=== PATIENT | male | born 1960 | race African-American/Black ===

== ENCOUNTER 2017-02-14 16:34 | Inpatient (IN) | payer BC, SELFPAY ==
[~2017-02-14] VITALS: Ht 175.3 cm; Wt 77.0 kg
--- NOTE | 2017-02-16 01:33 | ER ---
ADMIT: 02/14/2017 RM/LOC: 432 [facility] MR#: [id number] [address] [facility] [address] [place], [place] [address] TRUDY MCFADDEN [address] [place] [address] Emergency Room Report SEX: M AGE: 56 : 1960 DATE: 02/14/2017 TIME: 1634 hours. Please refer to my T-sheet for complete H and P. HISTORY OF PRESENT ILLNESS: Briefly, the patient is a 56-year-old, who comes in with chest pain, epigastric, started 2 hours ago while he was at rest, feels short of breath, feels weak. He also has a history of alcoholism. He drinks every day heavily and he has not drank for about 16-18 hours. He also smokes a pack of cigarettes. He has never had pain quite like this. He was brought in by his significant other. PHYSICAL EXAMINATION: VITAL SIGNS: His blood pressure is 130/80, pulse 77, respirations 19, sat 99%. GENERAL: He is in no acute distress. HEENT: Grossly normal. LUNGS: Clear. HEART: Tachy. No murmur. ABDOMEN: Soft, mildly tender at the epigastric. No rebound or guarding. SKIN: No rash. EMERGENCY DEPARTMENT COURSE: I gave him a liter of normal saline bolus, Zofran 4 IV, thiamine 100 mg IM, Protonix 40 mg IV, Ativan 1 mg IV, four p.o. 81 mg aspirin. CBC came back normal. Chemistries came back normal except potassium 3.1. Cardiac enzymes negative. Lipase is normal. I had a long discussion with him. I talked to Dr. Cramer. We will admit for a chest pain rule-out. ASSESSMENT: 1. Chest pain, atypical in nature. 2. ETOH abuse with early withdrawal. PLAN: Admit to the hospital. Ajay L Ohlson, MD/ thi JOB #: [id number] CC: Herberth Cramer MD, Attending Physician Herberth Cramer MD, Family Physician
[2017-02-16] MEDS ORDERED: PEPCID DPS20 MG PO (15:46)
[2017-02-16] MEDS ORDERED: DAILY MULTIPLE1 EAC1 PO (15:46)
[2017-02-16] MEDS ORDERED: FOLVITE-DPS1 MG PO (15:46)
[2017-02-16] MEDS ORDERED: ATIVAN-DPS1 MG PO (15:47)
--- NOTE | 2017-02-17 06:57 | HP ---
ADMIT: 02/14/2017 RM/LOC: 432 [facility] MR#: [id number] [address] [id number] TRUDY MCFADDEN [address] [place] [address] History and Physical SEX: M AGE: 56 : 1960 DATE OF SERVICE: CHIEF COMPLAINT AND HISTORY OF PRESENT ILLNESS: This is a 56-year-old male, who presented to the emergency room with pain in his entire chest and his upper abdomen. He tells me he has had some pain after 2 days in the emergency room charting at 2 hours. It is a sharp pain, nonradiating, associated with nausea but not with vomiting. Not associated with shortness of breath. He has no known cardiac history. He does have a longstanding history of alcoholism, heavy whiskey and vodka drinker for several years. Rarely quits. His last drink was about 8 o'clock this morning by his history. He wants to try to quit. In the emergency room, he was treated with Ativan, Protonix, Zofran. He was also given aspirin because of the chest pain. Also given thiamin. His EKG and cardiac enzymes and chest x-ray were all unremarkable. Dr. Woo has asked that we admit him to Acute Care to rule him out for acute coronary syndrome. PAST MEDICAL HISTORY: As far as I can tell, he has not been in inpatient Acute Care at [facility]. He has been treated for chemical dependency unit for alcohol dependence in the residential care program. This was in 2012. 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 Not aware of any other operations. He has never been diagnosed with any heart or lung disease or cancer. He has never had a stroke, never been diagnosed with hypertension or diabetes. MEDICATIONS: None routinely. ALLERGIES: NONE KNOWN. SOCIAL HISTORY: He is . He is accompanied by his . He is currently unemployed. He has alcoholism habit. He is a regular smoker but denies any illicit substances. FAMILY HISTORY: No known history of drug or alcohol problems. REVIEW OF SYSTEMS: CONSTITUTIONAL: He is not acknowledging any recent fevers. No recent ear, nose, throat complaints or change in his impaired vision. CARDIOVASCULAR: As above. RESPIRATORY: Denies shortness of breath. GASTROINTESTINAL: He has had nausea and abdominal pain but did not acknowledge any actual vomiting. No change in bowels or urination. PSYCH: History of PTSD, not currently on treatment. NEURO: No focal neurologic symptoms. He has had no hospitalizations for alcohol withdrawal, although he has had some alcohol withdrawal shakes in the past. He has had no alcohol withdrawal seizures. SKIN: No issues. HEMATOLOGIC: No history of any bleeding or blood clots. ADMIT: 02/14/2017 RM/LOC: [address] [facility] MR#: [id number] [address] [place] [id number] TRUDY MCFADDEN [address] [place] [address] History and Physical SEX: M AGE: 56 : 1960 PHYSICAL EXAMINATION: GENERAL: This is a pleasant gentleman, examined at the bedside, currently calm. He is not shaky. He is not tremulous. He is not tachycardic. He is not diaphoretic. He is alert. No signs of any hallucinations. VITAL SIGNS: Initial set of vital signs; 130/80, pulse 94, respirations 20, temp 98.4, O2 saturation 99% room air. 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 No significant vision in that eye. His left eye is grossly normal. Pupil reacts to light. ENT: Hearing is clear. No nasal discharge. Oropharynx is clear. NECK: No masses or tenderness. LUNGS: Clear, anterior and posterior. Normal respiratory effort. HEART: Regular rhythm. I do not hear a murmur. ABDOMEN: Mild tenderness across the upper abdomen. No guarding. No rebound. No lower abdominal tenderness. ABDOMEN: Soft. Bowel sounds are normal. No inguinal masses. GENITALIA: Unremarkable to cursory exam. SKIN: No rashes are noted. EXTREMITIES: Upper extremities normal appearance. Lower extremities grossly normal in appearance. No significant edema. BACK: Limited exam, nontender to palpation of the neck or spine. PSYCH: He is currently not anxious. LABORATORY DATA: His potassium is low at 3.1. Initial cardiac enzymes are negative. Various labs are still pending. IMPRESSION: 1. Likely noncardiac chest pain. However, we will rule out for acute coronary syndrome. 2. Chronic alcoholism, certainly at risk for withdrawal symptoms. 3. He smokes. 4. Mild hypokalemia. DISCUSSION: As outlined above, we will follow the [facility] protocol, trend his enzymes. Consults for [facility]. The patient agrees to all this. Herberth Cramer MD/ thi JOB #: [id number] CC: Herberth Cramer, Attending Physician Herberth Cramer, Family Physician
--- NOTE | 2017-02-25 09:32 | DS ---
ADMIT: 02/14/2017 RM/LOC: 432 [facility] MR#: [id number] [address] [address] TRUDY MCFADDEN [address] [place] [address] General Discharge Summary SEX: M AGE: 56 : 1960 ADMISSION DATE: 02/14/2017 DISCHARGE DATE: 02/16/2017 FINAL DIAGNOSES: 1. Noncardiac chest pain. 2. Esophageal reflux. 3. Chronic alcohol abuse. 4. Alcoholic gastritis. 5. Mild hypokalemia. DISCUSSION: See history and physical examination. He had presented with some pain in the entire chest which was felt to be noncardiac after his ER and inpatient evaluation. His biggest issue is chronic alcoholism for which he needs treatment, and through help from Social Work in the [facility] and [facility], he will be transitioned to a detox unit in [facility] and then inpatient at [facility] according to the notes charted. We will follow him up for his medical needs at our office. Herberth Cramer MD/ thi JOB #: [id number] CC: Herberth Cramer MD, Attending Physician Herberth Cramer MD, Family Physician
== END 2017-02-16 09:56 | disposition home or self-care (01) | DRG 392 ==
LOC: ER 16:34 → 4PCU 18:18
PROVIDERS: ADMIT Family Medicine
PROC: HZ2ZZZZ Detoxification Services for Substance Abuse Treatment (ICD-10-PCS; principal; 2017-02-14)
DX: K29.20 Alcoholic gastritis without bleeding (principal); F10.239 Alcohol dependence with withdrawal, unspecified; F17.200 Nicotine dependence, unspecified, uncomplicated; E87.6 Hypokalemia; K21.9 Gastro-esophageal reflux disease without esophagitis; F43.10 Post-traumatic stress disorder, unspecified; H54.41 Blindness, right eye, normal vision left eye